=== PATIENT | male | born 1990 | race African-American/Black ===

== ENCOUNTER 2025-03-31 11:13 | Emergency (ER) | payer OTHER ==
[2025-03-31] MEDS ORDERED: Ibuprofen 200 MG TAB ONE (14:18)
== END 2025-03-31 14:28 | disposition home or self-care (01) ==
LOC: CSHERS 11:13
DX: M79.642 Pain in left hand (principal); F17.210 Nicotine dependence, cigarettes, uncomplicated
CPT/HCPCS: 99283